=== PATIENT | female | born 1990 ===

== ENCOUNTER 2022-08-13 20:00 | Inpatient (IN) | payer MEDICAID ==
[2022-08-13] MEDS ORDERED: ACETAMINOPHEN TAB 325 MG TAB PO PRN (23:03)
[2022-08-13] MEDS ORDERED: haloperidoL 5 MG TAB PO PRN (23:05)
[2022-08-13] MEDS ORDERED: HALOPERIDOL LACTATE 5 MG/ML 1 ML VIAL IM PRN (23:05)
[2022-08-13] MEDS ORDERED: diphenhydrAMINE 50 MG/ML 1 ML VIAL IM PRN (23:06)
[2022-08-13] MEDS ORDERED: diphenhydrAMINE 25 MG CAP PO PRN (23:06)
[2022-08-13] MEDS ORDERED: DOCUSATE 100 MG CAP PO PRN (23:09)
[2022-08-13] MEDS ORDERED: BENZOCAINE/MENTHOL LOZENG 1 EACH LOZENGE MUCOUS MEM PRN (23:11)
--- NOTE | 2022-08-14 03:05 | P.PN ---
Progress Note - Text Progress Note Date: 08/14/22 Attempted to see the patient on the mental health unit. She refused to be seen or be evaluated.
[2022-08-14 08:03] LABS: ALT 23 U/L (4-34); AST 20 U/L (14-36); African American GFR (CKD) >90 (>60 ml/min/1.73 sqM); Alkaline Phosphatase 63 U/L (38-126); Anion Gap 4 mmol/L; Blood Urea Nitrogen 5 mg/dL (7-17); Calcium 8.6 mg/dL (8.4-10.2); Carbon Dioxide 24 mmol/L (22-30); Chloride 106 mmol/L (98-107); Glucose 75 mg/dL (74-99); Non-African American GFR(CKD) >90 (>60 ml/min/1.73 sqM); Sodium 134 mmol/L (137-145); Total Bilirubin 0.2 mg/dL (0.2-1.3); Total Protein 5.9 g/dL (6.3-8.2)
[2022-08-14 08:13] LABS: Basophils % (A) 0 %; Eosinophils # (A) 0.1 k/uL (0-0.7); Eosinophils % (A) 1 %; HGB 10.3 gm/dL (11.4-16.0); Hypochromasia Moderate; Lymphocytes # (A) 1.9 k/uL (1.0-4.8); Lymphocytes % (A) 16 %; MCH 26.6 pg (25.0-35.0); MCHC 31.1 g/dL (31.0-37.0); MCV 85.4 fL (80.0-100.0); Mean Platelet Volume 11.9; Monocytes # (A) 0.7 k/uL (0-1.0); Monocytes % (A) 6 %; Neutrophils # (A) 8.6 k/uL (1.3-7.7); Neutrophils % (A) 74 %; RBC 3.87 m/uL (3.80-5.40); WBC 11.7 k/uL (3.8-10.6)
[2022-08-14] MEDS: PRENATAL VIT-IRON-FOLIC ACID 1 EACH TABLET PO SCH (08:37)
[2022-08-14 09:07] LABS: Platelet Count 160 k/uL (150-450)
[2022-08-14 10:35] LABS: Chol/HDL Ratio 4.03 Ratio; LDL Cholesterol,Calculated 126.7 mg/dL (0.0-131.0)
--- NOTE | 2022-08-14 13:46 | P.HP ---
Psychiatric H&P - . H&P Date: 08/14/22 History & Physical: Allergies Allergy/AdvReac Type Severity Reaction Status Date / Time No Known Allergies Allergy Verified 08/13/22 22:55 Vital Signs Temp 97.5 F L 08/14/22 08:53 Pulse 121 H 08/14/22 08:53 Resp 18 08/14/22 08:53 BP 117/56 08/14/22 08:53 Pulse Ox 100 08/14/22 08:53 FiO2 Intake & Output 08/13/22 08/14/22 08/14/22 18:59 06:59 18:59 Weight 74 kg Laboratory Last Values WBC 11.7 k/uL (3.8-10.6) H 08/14/22 07:07 RBC 3.87 m/uL (3.80-5.40) 08/14/22 07:07 Hgb 10.3 gm/dL (11.4-16.0) L 08/14/22 07:07 Hct 33.0 % (34.0-46.0) L 08/14/22 07:07 MCV 85.4 fL (80.0-100.0) 08/14/22 07:07 MCH 26.6 pg (25.0-35.0) 08/14/22 07:07 MCHC 31.1 g/dL (31.0-37.0) 08/14/22 07:07 RDW 14.0 % (11.5-15.5) 08/14/22 07:07 Plt Count 160 k/uL (150-450) 08/14/22 07:07 MPV 11.9 08/14/22 07:07 Neutrophils % 74 % 08/14/22 07:07 Lymphocytes % 16 % 08/14/22 07:07 Monocytes % 6 % 08/14/22 07:07 Eosinophils % 1 % 08/14/22 07:07 Basophils % 0 % 08/14/22 07:07 Neutrophils # 8.6 k/uL (1.3-7.7) H 08/14/22 07:07 Lymphocytes # 1.9 k/uL (1.0-4.8) 08/14/22 07:07 Monocytes # 0.7 k/uL (0-1.0) 08/14/22 07:07 Eosinophils # 0.1 k/uL (0-0.7) 08/14/22 07:07 Basophils # 0.0 k/uL (0-0.2) 08/14/22 07:07 Manual Slide Review Performed 08/14/22 07:07 Hypochromasia Moderate 08/14/22 07:07 Sodium 134 mmol/L (137-145) L 08/14/22 07:07 Potassium 4.0 mmol/L (3.5-5.1) 08/14/22 07:07 Chloride 106 mmol/L (98-107) 08/14/22 07:07 Carbon Dioxide 24 mmol/L (22-30) 08/14/22 07:07 Anion Gap 4 mmol/L 08/14/22 07:07 BUN 5 mg/dL (7-17) L 08/14/22 07:07 Creatinine 0.56 mg/dL (0.52-1.04) 08/14/22 07:07 Est GFR (CKD-EPI)AfAm >90 (>60 ml/min/1.73 sqM) 08/14/22 07:07 Est GFR (CKD-EPI)NonAf >90 (>60 ml/min/1.73 sqM) 08/14/22 07:07 Glucose 75 mg/dL (74-99) 08/14/22 07:[address] Glu mg/dL 96 08/14/22 07:07 Hemoglobin A1c 5.0 % (0.0-6.0) 08/14/22 07:07 Calcium 8.6 mg/dL (8.4-10.2) 08/14/22 07:07 Total Bilirubin 0.2 mg/dL (0.2-1.3) 08/14/22 07:07 AST 20 U/L (14-36) 08/14/22 07:07 ALT 23 U/L (4-34) 08/14/22 07:07 Alkaline Phosphatase 63 U/L (38-126) 08/14/22 07:07 Total Protein 5.9 g/dL (6.3-8.2) L 08/14/22 07:07 Albumin 3.0 g/dL (3.5-5.0) L 08/14/22 07:07 Triglycerides 156.00 mg/dL (0.00-149.00) H 08/14/22 07:07 Cholesterol 210.00 mg/dL (0.00-200.00) H 08/14/22 07:07 LDL Cholesterol, Calc 126.7 mg/dL (0.0-131.0) 08/14/22 07:07 VLDL Cholesterol, Calc 31.20 mg/dL (5.00-40.00) 08/14/22 07:07 HDL Cholesterol 52.10 mg/dL (40.00-60.00) 08/14/22 07:07 Cholesterol/HDL Ratio 4.03 Ratio 08/14/22 07:07 TSH 0.996 mIU/L (0.465-4.680) 08/14/22 07:07 08/14/22 13:45 IDENTIFYING DATA: Patient is a 32-year-old -[place] female with significant history of schizophrenia presented to our hospital under court order from [place] HPI: Patient presented to the hospital on 08/13/2022 brought in from [facility] on a worm picker order for nonadherence with treatment. As per chart review, the patient presented to [place] ED as extremely upset, unconsolable, and screaming - stating she "did not want to have this baby." She was noted be striking at her adbdomen by staff and did endorse auditory hallucinations. She was subsequently transferred to our psychiatric unit and is currently under court order for treatment. As per review of her court order paperwork, the patient was hospitalized in June of 2022 for auditory hallucinations, suicidal ideation, and delusional thoughts that "milk can cure everything." The patient missed her intake appointment on 07/31/2022 at [facility]. Upon evaluation on the psychiatric unit, the patient is grossly disorganized and is suspicious, guarded, and evasive on questioning. When giving answers, the patient is nonsensical and nonlinear. She states she is admitted to the hospital for reasons that "only females will understand." She later states she has been cured with vitamins B6 and vitamins for her hair and nails. She does report she was initially on risperdal and abilify in the past but is unable to verbalize when she last took psychiatric medications. She is not endorsing any suicidal ideation to this provider. She denies any overt auditory or visual hallucinations. She remains delusional and disorganized. . PAST PSYCHIATRIC HISTORY: Patient has a history of schizophrenia. Patient recalls seroquel, risperdal, and abilify. Patient was last hospitalized this past June. Patient was nonadherent with outpatient follow-up. Unable to determine past suicide attempts. PMH: Third trimester - Patient reported 7 months . ALLERGIES: NKDA CHEMICAL DEPENDENCY HISTORY: Unable to assess. FAMILY PSYCHIATRIC/SUBSTANCE USE HISTORY: Unable to assess. SOCIAL HISTORY: Patient reported has a partner who is taking care of her other children. MENTAL STATUS EXAM: General Appearance: Patient appears to be stated age is alert, directable, and attempts to cooperate. Patient appears to have fair hygiene and grooming. Behavior: Patient is seated without any agitated behavior. Speech: Patient's speech is fluent and nonpressured. Nonlinear and difficult to follow. Mood/Affect: Patient reports their mood is "I'm fine." affect is irritable and guarded. Suicidality/Homicidality: Patient denies Perceptions: Patient denies any visual hallucinations and denies any auditory hallucinations Though content/process: Delusional, disorganized. Memory and concentration: Grossly poor. Judgment and insight: Very poor. STRENGTHS/WEAKNESSES: Unable to identify patient strengths. Weakness is patient is nonadherent with treatment INTELLECT: average IMPRESSIONS: Schizophrenia PLAN: -Patient is admitted under involuntary status to MHU for stabilization of psychiatric symptoms and safety. Patient is court ordered. -Medications : Start Abilify 5 mg at bedtime. Patient states this is the only medication she will take. Patient was educated on risks, benefits and treatment alternatives especially in regards to . She does not wish to try other medications. Active psychosis is a risk to the child especially if the patient starts self harming and punching her abdomen. -Haldol and benadryl PRN for agitation/aggression -Patient was informed of the risks, benefits and side effects of the medication and patient verbally consented to taking the medications. -Internal Medicine consult to perform medical evaluation and physical. -SW on board for discharge planning. Encourage patient to participate in groups to work on coping skills. 08/14/22 13:45
--- NOTE | 2022-08-14 17:57 | P.OBCN ---
History of Present Illness Consult date: 08/14/22 Reason for consult: other () Chief complaint: schizophrenia History of present illness: 32 year old at around 28 weeks gestation, although the patient cannot tell me her due date, was transferred here from [facility] for psychiatric care. She's in the mental health unit because she did not show up to her intake visit in July. She is court ordered in the mental health unit. She says she does have an ATTACHER but I believe she is only seen him once as she has to get her insurance changed. Patient denies contractions vaginal bleeding or loss of fluid. She states there is good movement. Review of Systems All systems: negative Constitutional: Denies chills, Denies fever Eyes: denies blurred vision, denies pain Ears, nose, mouth and throat: Denies headache, Denies sore throat Cardiovascular: Denies chest pain, Denies shortness of breath Respiratory: Denies cough Gastrointestinal: Denies abdominal pain, Denies diarrhea, Denies nausea, Denies vomiting Genitourinary: Denies dysuria, Denies hematuria Musculoskeletal: Denies myalgias Integumentary: Denies pruritus, Denies rash Neurological: Denies numbness, Denies weakness Psychiatric: Denies anxiety, Denies depression Endocrine: Denies fatigue, Denies weight change Past Medical History Additional Past Medical History / Comment(s): Obstetric history: Patient states she had 1 termination, 1 spontaneous , 3 normal vaginal deliveries. Medications and Allergies Allergies Allergy/AdvReac Type Severity Reaction Status Date / Time No Known Allergies Allergy Verified 08/13/22 22:55 Exam Osteopathic Statement: *. No significant issues noted on an osteopathic structural exam other than those noted in the History and Physical/Consult. Vital Signs Temp Pulse Resp BP BP Pulse Ox 08/14/22 08:53 97.5 F L 121 H 18 117/56 100 08/13/22 22:10 97.7 F 91 18 116/58 Abdomen is soft and gravid. heart tones are 157. Results Result Diagrams: 08/14/22 07:07 08/14/22 07:07 Abnormal Lab Results - Last 24 Hours (Table) 08/14/22 08/14/22 Range/Units 07:07 07:07 WBC 11.7 H (3.8-10.6) k/uL Hgb 10.3 L (11.4-16.0) gm/dL Hct 33.0 L (34.0-46.0) % Neutrophils # 8.6 H (1.3-7.7) k/uL Sodium 134 L (137-145) mmol/L BUN 5 L (7-17) mg/dL Total Protein 5.9 L (6.3-8.2) g/dL Albumin 3.0 L (3.5-5.0) g/dL Triglycerides 156.00 H (0.00-149.00) mg/dL Cholesterol 210.00 H (0.00-200.00) mg/dL Assessment and Plan (1) 28 weeks gestation of Current Visit: Yes Status: Acute Code(s): Z3A.28 - 28 WEEKS GESTATION OF SNOMED Code(s): 66722154 (2) Schizophrenia Current Visit: Yes Status: Acute Code(s): F20.9 - SCHIZOPHRENIA, UNSPECIFIED SNOMED Code(s): 92299316 Plan: 1. Continue psychiatric care and therapy and with medications 2. Doppler heart tones daily
[2022-08-14] MEDS ORDERED: ARIPiprazole 5 MG TAB PO SCH (21:00)
--- NOTE | 2022-08-15 00:05 | P.PN ---
Progress Note - Text Progress Note Date: 08/15/22 Attempted to see the patient on the mental health unit at 2200 on 08/14. Informed by the mental health unit RN that the patient was inappropriate for evaluation as she was acting erratically and refusing to communicate with the staff.
[2022-08-15] MEDS: PRENATAL VIT-IRON-FOLIC ACID 1 EACH TABLET PO SCH (08:28)
--- NOTE | 2022-08-15 11:05 | P.PN ---
Progress Note - Text Progress Note Date: 08/15/22 Interval History: Patient was seen wandering the hallways and was directable and agreeable to speak with life insurance underwriter in the office. Currently, the patient is not reporting any suicidal or homicidal ideation, intention, and/or plan. She is not reporting any auditory or visual hallucinations this provider. She does state that she is unhappy with her fianc and feels that he has not been supportive of her. She is nonlinear in conversation and is difficult to follow in regards to her complaints about her fianc. She did take her Abilify last night and is currently not reporting any significant side effects. She reports no issues regarding her sleep or her appetite. Blood pressure is noted to be 86/49 however the patient is not reporting any issues or concerns to this provider. She was encouraged to drink more fluids. Mental Status Exam: General Appearance: Patient appears to be stated age is alert, directable, and cooperative. Behavior: Patient is calmly seated without any agitated behavior. Speech: Patient's speech is fluent and nonpressured. Nonlinear and at times difficult to follow. Mood/Affect: Mood is improving mildly, affect is congruent and constricted. Suicidality/Homicidality: Patient denies having any suicidal or homicidal ideation intent or plan. Perceptions: Patient denies any visual hallucinations and denies any auditory hallucinations Though content/process: Her thought process was not linear. Thought content is fixated on her fianc. Memory and concentration: AOX3, grossly intact for the purposes of this session Judgment and insight: Improving mildly Vital Signs Temp 98.0 F 08/15/22 06:40 Pulse 84 08/15/22 06:40 Resp 15 08/15/22 06:40 BP 86/49 08/15/22 06:40 Pulse Ox 100 08/14/22 08:53 FiO2 Laboratory Results - Last 24 Hours 08/14/22 14:13 Coronavirus (PCR) Not Detected Assessment Schizophrenia Third trimester Plan: -Patient continues to meet criteria for inpatient psychiatric admission for symptom stabilization and safety. The patient is under court order for mental health treatment. -Medications: Increase Abilify to 10 mg at bedtime. -When necessary Benadryl and Haldol for agitation/aggression. -SW on board for discharge planning. Encouraged the patient to participate in milieu.
[2022-08-15] MEDS: ARIPiprazole 10 MG TAB PO SCH ×2 (20:42→22:19)
[2022-08-16] MEDS: PRENATAL VIT-IRON-FOLIC ACID 1 EACH TABLET PO SCH (08:19)
[2022-08-16] MEDS ORDERED: HALOPERIDOL LACTATE 5 MG/ML 1 ML VIAL IM PRN (11:28)
--- NOTE | 2022-08-16 11:48 | P.PN ---
Progress Note - Text Progress Note Date: 08/16/22 Interval History: Patient was seen wandering the hallways and was directable and agreeable to speak with greeting card writer in her room. Currently, the patient continues to be nonlinear and disorganized in speech. She did end up taking her abilify last night after much redirection. She is denying any overt auditory or visual hallucinations but continues to respond to internal stimuli. She denies any suicidal or homicidal ideation, intention, and/or plan. She has been eating and sleeping well. No reported medical issues or concerns today. Mental Status Exam: Grossly unchanged from yesterday. General Appearance: Patient appears to be stated age is alert, difficult to direct, and cooperative. Behavior: Patient is calmly seated without any agitated behavior. Speech: Patient's speech is fluent and nonpressured. Nonlinear and at times difficult to follow. Mood/Affect: Mood is "okay," affect is congruent and blunted. Suicidality/Homicidality: Patient denies having any suicidal or homicidal ideation intent or plan. Perceptions: Patient denies any visual hallucinations and denies any auditory hallucinations Though content/process: Her thought process was not linear. Disorganized. Memory and concentration: AOX3, grossly intact for the purposes of this session Judgment and insight: Improving mildly Vital Signs Temp 98.4 F 08/16/22 07:00 Pulse 90 08/16/22 07:00 Resp 16 08/16/22 07:00 BP 103/54 08/16/22 07:00 Pulse Ox 97 08/16/22 07:00 FiO2 Assessment Schizophrenia Third trimester Plan: -Patient continues to meet criteria for inpatient psychiatric admission for symptom stabilization and safety. The patient is under court order for mental health treatment. -Medications: Increase Abilify to 15 mg at bedtime. This provider contacted the National Registry for Psychiatric medications and was directed to the Psychiatric Consult Line. A request for psychiatric consult was made online and to hear back within 24 hours as this provider would like to start abilify maintena. -When necessary Benadryl and Haldol for agitation/aggression. -SW on board for discharge planning. Encouraged the patient to participate in milieu.
[2022-08-16] MEDS: ARIPiprazole 15 MG TAB PO SCH (21:24)
[2022-08-17] MEDS: PRENATAL VIT-IRON-FOLIC ACID 1 EACH TABLET PO SCH (08:39)
--- NOTE | 2022-08-17 19:08 | P.PN ---
Progress Note - Text Progress Note Date: 08/17/22 Interval history: Patient was seen isolating to her bed after dinner. She was directable and agreeable to speak with proposal lead writer, but also appeared withdrawn. At this time patient denies any suicidal or homicidal ideation, intent or plan. She endorses auditory and visual hallucinations. Her Abilify was recently increased to 15 mg QHS last night. Patient denies any side effects from the medications and has been compliant with meds. She reports fair mood, good appetite, and "weary" sleep. She reports financial stressors and reports thinking of "punching a wall" because of "amin" of her financial issues. Mental status exam: General Appearance: Patient appears to be stated age, is alert, laying in bed with covers on, wearing casual attire and hair wrap. Behavior: No agitated behavior. Patient is calm and directable, appears withdrawn. Speech: Patient's speech is fluent and non-pressured, soft/low tone. Mood/Affect: Mood is fair, affect is congruent and constricted. Suicidality/Homicidality: Patient denies having any suicidal or homicidal ideation intent or plan. Perceptions: Patient endorses auditory or visual hallucinations. Though content/process: There is no evidence of any delusional thought content and thought process is linear and goal-directed. Memory and concentration: AOX3, grossly intact for the purposes of this session Judgment and insight: improving mildly Assessment/Plan: Continue with current diagnosis. Patient continues to meet criteria for inpatient psychiatric admission for symptom stabilization and safety. Patient will be maintained on current psychotropic medication regimen. Abilify was increased to 15 mg QHS last night, will monitor at this dose for now and increase to 20 mg QHS if needed. Monitor for medication compliance and for any psychotropic medication side effects. Will continue to monitor ongoing response to treatment. Encouraged participation in milieu.
[2022-08-17] MEDS: ARIPiprazole 15 MG TAB PO SCH (20:44)
[2022-08-18] MEDS: PRENATAL VIT-IRON-FOLIC ACID 1 EACH TABLET PO SCH (08:15)
--- NOTE | 2022-08-18 19:20 | P.PN ---
Progress Note - Text Progress Note Date: 08/18/22 Interval history: Patient was seen isolating to her bed after dinner again today. She was directable and agreeable to speak with newswriter, but continues to appear withdrawn with blunted affect, concrete thoughts that are somewhat disorganized with irrelevant responses such as "equator" when asked about her mood. At this time, patient denies any suicidal or homicidal ideation, intent or plan. She appears to be attending to internal stimuli. Patient denies any side effects from the medications and has been compliant with meds. She reports fair mood, appears depressed and states she wants to go home. Mental status exam: General Appearance: Patient appears to be stated age, is alert, laying in bed with covers on, wearing casual attire and hair wrap. Behavior: No agitated behavior. Patient is calm, appears withdrawn and passively engaged in assessment. Speech: Patient's speech is fluent and non-pressured, soft/low tone. Mood/Affect: Mood is fair, affect is blunted. Suicidality/Homicidality: Patient denies having any suicidal or homicidal ideation intent or plan. Perceptions: Patient appears to be responding to internal stimuli. Though content/process: There is no evidence of any delusional thought content, and thought process is somewhat disorganized with irrelevant words. Memory and concentration: AOX3, grossly intact for the purposes of this session Judgment and insight: improving mildly Assessment/Plan: Continue with current diagnosis. Patient continues to meet criteria for inpatient psychiatric admission for symptom stabilization and safety. Increase Abilify to 20 mg QHS for psychosis. Monitor for medication compliance and for any psychotropic medication side effects. Will continue to monitor ongoing response to treatment. Encouraged participation in milieu.
[2022-08-18 20:28] VITALS: RESP 18
[2022-08-19 06:28] VITALS: BP 114/54; PULSE 104; TEMP 97.9
[2022-08-19] MEDS: PRENATAL VIT-IRON-FOLIC ACID 1 EACH TABLET PO SCH (08:01)
--- NOTE | 2022-08-19 11:05 | P.DS ---
Providers Date of admission: 08/13/22 21:35 Expected date of discharge: 08/19/22 Attending physician: Noe Shin MD Consults: 08/13/22 22:55 Consult Physician Routine Consulting Provider: Damon Thurston ASSET PROTECTION DETECTIVE Consult Reason/Comments: Patient approximately 7 months Do you want consulting provider notified?: Yes, Notify in am 08/13/22 23:03 Consult Physician Routine Consulting Provider: [facility] Consult Reason/Comments: History and physical Do you want consulting provider notified?: Yes Primary care physician: Stated None - Discharge Diagnosis(es) (1) Schizophrenia Current Visit: Yes Status: Acute Priority: High (2) 28 weeks gestation of Current Visit: Yes Status: Acute Priority: High Hospital Course: Admission HPI: Patient is a 32-year-old -Beninese female with significant history of schizophrenia presented to our hospital under court order from [place] Patient presented to the hospital on 08/13/2022 brought in from [facility] on a belt picker order for nonadherence with treatment. As per chart review, the patient presented to [facility] ED as extremely upset, unconsolable, and screaming - stating she "did not want to have this baby." She was noted be striking at her adbdomen by staff and did endorse auditory hallucinations. She was subsequently transferred to our psychiatric unit and is currently under court order for treatment. As per review of her court order paperwork, the patient was hospitalized in June of 2022 for auditory hallucinations, suicidal ideation, and delusional thoughts that "milk can cure everything." The patient missed her intake appointment on 07/31/2022 at [facility]. Upon evaluation on the psychiatric unit, the patient is grossly disorganized and is suspicious, guarded, and evasive on questioning. When giving answers, the patient is nonsensical and nonlinear. She states she is admitted to the hospital for reasons that "only females will understand." She later states she has been cured with vitamins B6 and vitamins for her hair and nails. She does report she was initially on risperdal and abilify in the past but is unable to verbalize when she last took psychiatric medications. She is not endorsing any suicidal ideation to this provider. She denies any overt auditory or visual hallucinations. She remains delusional and disorganized. Patient has a history of schizophrenia. Patient recalls seroquel, risperdal, and abilify. Patient was last hospitalized this past June. Patient was nonadherent with outpatient follow-up. Unable to determine past suicide attempts. Hospital course: Upon admission to the unit patient was initially presenting as grossly disorganized, irritable, and delusional. Patient was however directable and a greeable to commence treatment. Patient got along well with other patients on the unit and followed unit protocol. Patient was compliant with the medications and denied any side effects throughout hospital course. Patient was started on abilify for psychosis. Patient spoke of her stressors and engaged in therapy both group and individual. She did report some issues regarding her relationship with the father of her children however vehemently denies any concerns or physical violence. Patient was also seen by medical team for history and physical exam. She was also seen by the filament maker as she is 7 months . With course of the hospitalization, the patient's Abilify was gradual titrated. On this regimen, the patient displayed significant improvement in regards to psychosis. She became much more linear and logical in conversation. The day of discharge, patient is denying any suicidal or homicidal ideation, intention, and/or plan. She is not reporting any auditory or visual hallucinations. She reports no paranoia or other delusions at this time. She is linear and logical in short conversation. She has been adherent with her medication is not reporting any significant side effects. She reports no medical issues or concerns and denies any chest pain, shyness of breath, palpitations, abdominal pain, or acute dystonic symptoms. The patient was counseled at length on medication adherence and appropriate outpatient follow-up. Furthermore, patient was counseled on abstinence from all substances including alcohol, marijuana, tobacco, and any illicit drugs. As patient longer met criteria for inpatient psychiatric admission, she was subsequently discharged. Mental status exam: General Appearance: Patient appears to be stated age is alert, pleasant, and cooperative. Patient is in no acute distress and has fair hygiene and grooming Behavior: Patient is calmly seated without any agitated behavior. Speech: Patient's speech is fluent and nonpressured. Mood/Affect: Patient reports their mood is "much better", affect is congruent and euthymic. Suicidality/Homicidality: Patient denies having any suicidal or homicidal ideation intent or plan. Perceptions: Patient denies any auditory or visual hallucinations. Though content/process: There is no evidence of any delusional thought content and thought process is linear and goal-directed. Patient is future oriented. Memory and concentration: AOX3, grossly intact for the purposes of this session. Can spell "WORLD" backwards correctly. Judgment and insight: Improved with guarded prognosis Impression: Schizophrenia Third trimester Plan: -Continue with discharge today as patient has improved and stabilized psychiatrically and is not currently an imminent threat to herself and/or others. Patient will remain at chronically elevated risk due to severity of her mental illness. -Continue medications: Abilify 20 mg by mouth at bedtime for schizophrenia -Patient was counseled on the need for medication compliance and appropriate follow-up at mental health and also primary care for medical issues. Patient verbalized understanding and agreed. -Social work to arrange for and conduct family meeting to ensure safety upon discharge and answer any questions/concerns. Social work also to arrange for patients follow up appointments with [facility] for psychiatric care along with follow up with primary care provider. -Patient counseled on abstaining from recreational drugs and marijuana and alcohol. Was informed/educated on the adverse effects on their physical and mental health. Patient verbally agreed and understood. -Patient was instructed to return to the hospital or seek immediate medical care if their psychiatric or medical symptoms do worsen or reoccur. -The patient was also counseled on appropriate follow-up with her filament maker. -Psychoeducation and supportive therapy provided to patient. Risks and benefits of pharmacological treatment versus the risks and benefits of nontreatment weight and discussed. Informed consent discussion held. Common side effects of psychotropics discussed such as, but not limited to headache, GI disturbance, se xual dysfunction, movement disorders, sedation, and orthostatic hypotension. Life threatening and blackbox warnings of prescribed medications also discussed. Potential risks of operating a vehicle or heavy machinery discussed with patient at length. Advised on importance of compliance and a reliable and responsible manner. Patient advised to review FDA consumer labeling of all medications prior to taking. Patient verbalized understanding of potential risks, and agrees with current treatment plan. Patient advised to medically contact physician/emergency personnel if any acute changes in condition occur. Vital Signs Temp 97.9 F 08/19/22 06:27 Pulse 104 H 08/19/22 06:27 Resp 18 08/19/22 06:27 BP 114/54 08/19/22 06:27 Pulse Ox 98 08/19/22 06:27 FiO2 Intake & Output 08/18/22 08/19/22 08/19/22 18:59 06:59 18:59 Weight 74.2 kg Laboratory Results WBC 11.7 k/uL (3.8-10.6) H 08/14/22 07:07 RBC 3.87 m/uL (3.80-5.40) 08/14/22 07:07 Hgb 10.3 gm/dL (11.4-16.0) L 08/14/22 07:07 Hct 33.0 % (34.0-46.0) L 08/14/22 07:07 MCV 85.4 fL (80.0-100.0) 08/14/22 07:07 MCH 26.6 pg (25.0-35.0) 08/14/22 07:07 MCHC 31.1 g/dL (31.0-37.0) 08/14/22 07:07 RDW 14.0 % (11.5-15.5) 08/14/22 07:07 Plt Count 160 k/uL (150-450) 08/14/22 07:07 MPV 11.9 08/14/22 07:07 Neutrophils % 74 % 08/14/22 07:07 Lymphocytes % 16 % 08/14/22 07:07 Monocytes % 6 % 08/14/22 07:07 Eosinophils % 1 % 08/14/22 07:07 Basophils % 0 % 08/14/22 07:07 Neutrophils # 8.6 k/uL (1.3-7.7) H 08/14/22 07:07 Lymphocytes # 1.9 k/uL (1.0-4.8) 08/14/22 07:07 Monocytes # 0.7 k/uL (0-1.0) 08/14/22 07:07 Eosinophils # 0.1 k/uL (0-0.7) 08/14/22 07:07 Basophils # 0.0 k/uL (0-0.2) 08/14/22 07:07 Manual Slide Review Performed 08/14/22 07:07 Hypochromasia Moderate 08/14/22 07:07 Sodium 134 mmol/L (137-145) L 08/14/22 07:07 Potassium 4.0 mmol/L (3.5-5.1) 08/14/22 07:07 Chloride 106 mmol/L (98-107) 08/14/22 07:07 Carbon Dioxide 24 mmol/L (22-30) 08/14/22 07:07 Anion Gap 4 mmol/L 08/14/22 07:07 BUN 5 mg/dL (7-17) L 08/14/22 07:07 Creatinine 0.56 mg/dL (0.52-1.04) 08/14/22 07:07 Est GFR (CKD-EPI)AfAm >90 (>60 ml/min/1.73 sqM) 08/14/22 07:07 Est GFR (CKD-EPI)NonAf >90 (>60 ml/min/1.73 sqM) 08/14/22 07:07 Glucose 75 mg/dL (74-99) 08/14/22 07:[address] Glu mg/dL 96 08/14/22 07:07 Hemoglobin A1c 5.0 % (0.0-6.0) 08/14/22 07:07 Calcium 8.6 mg/dL (8.4-10.2) 08/14/22 07:07 Total Bilirubin 0.2 mg/dL (0.2-1.3) 08/14/22 07:07 AST 20 U/L (14-36) 08/14/22 07:07 ALT 23 U/L (4-34) 08/14/22 07:07 Alkaline Phosphatase 63 U/L (38-126) 08/14/22 07:07 Total Protein 5.9 g/dL (6.3-8.2) L 08/14/22 07:07 Albumin 3.0 g/dL (3.5-5.0) L 08/14/22 07:07 Triglycerides 156.00 mg/dL (0.00-149.00) H 08/14/22 07:07 Cholesterol 210.00 mg/dL (0.00-200.00) H 08/14/22 07:07 LDL Cholesterol, Calc 126.7 mg/dL (0.0-131.0) 08/14/22 07:07 VLDL Cholesterol, Calc 31.20 mg/dL (5.00-40.00) 08/14/22 07:07 HDL Cholesterol 52.10 mg/dL (40.00-60.00) 08/14/22 07:07 Cholesterol/HDL Ratio 4.03 Ratio 08/14/22 07:07 TSH 0.996 mIU/L (0.465-4.680) 08/14/22 07:07 Coronavirus (PCR) Not Detected (Not Detectd) 08/16/22 12:18 Allergies Allergy/AdvReac Type Severity Reaction Status Date / Time No Known Allergies Allergy Verified 08/13/22 22:55 Patient Condition at Discharge: Stable Plan - Discharge Summary New Discharge Prescriptions: New ARIPiprazole [Abilify] 20 mg PO HS 30 Days tab Discharge Medication List ARIPiprazole [Abilify] 20 mg PO HS 30 Days tab 08/19/22 [Rx] Follow up Appointment(s)/Referral(s): [facility] - 1 Week Patient Instructions/Handouts: Schizophrenia (DC) Activity/Diet/Wound Care/Special Instructions: Activity and diet as tolerated. Avoid the use of street drugs and alcohol. Take all medications as prescribed. When you are in need of refills on your medications please contact your medical provider and/or outpatient psychiatrist to have this done. Please go to scheduled outpatient appointment for aftercare treatment. If symptoms return or become worse, call the crisis line at and/or go to the nearest emergency room for evaluation Discharge Disposition: HOME SELF-CARE
== END 2022-08-19 13:57 | disposition home or self-care (01) | DRG 832 ==
LOC: 3MHU 21:35
PROVIDERS: ADMIT Psychiatry & Neurology Psychiatry; ATTEND Psychiatry & Neurology Psychiatry
DX: O99.343 Other mental disorders complicating pregnancy, third trimester (principal); R45.851 Suicidal ideations; F20.9 Schizophrenia, unspecified; Z3A.28 28 weeks gestation of pregnancy; Z59.86 Financial insecurity; Z79.899 Other long term (current) drug therapy; Z71.89 Other specified counseling; Z20.822 Contact with and (suspected) exposure to COVID-19; Z53.29 Procedure and treatment not carried out because of patient's decision for other reasons; Z91.51 Personal history of suicidal behavior
CPT/HCPCS: 80053; 80061; 83036; 84443; 85025; 87635